=== PATIENT | female | born 1990 | race Caucasian/White ===

== ENCOUNTER 2019-05-20 15:53 | Outpatient (CLI) | payer OTHER, SELFPAY ==
--- NOTE | ~2019-05-20 | US_ITS ---
EXAMINATION: US soft tissue abdomen DATE: 05/20/2019 16:28 INDICATION: Palpable mass in left upper quadrant of the abdomen. TECHNIQUE: Multiple grayscale and Doppler ultrasound images of the abdomen were obtained. COMPARISON: CT abdomen and pelvis 12/11/2015 FINDINGS: There is no abnormal mass or hernia in the patient's area of concern in left upper quadrant . IMPRESSION: 1. No abnormal mass or hernia in the patient's area of concern in left upper quadrant. Reviewed, dictated and finalized at location A. [facility]MENT[facility] CONSULTANT IMPRESSION: 1. No abnormal mass or hernia in the patient's area of concern in left upper qu adrant.
== END 2019-05-20 15:54 | disposition home or self-care (01) ==
LOC: ANHIMG 16:00
PROVIDERS: PCP Nurse Practitioner; Visit Provider Nurse Practitioner
DX: R19.00 Intra-abdominal and pelvic swelling, mass and lump, unspecified site (principal)
CPT/HCPCS: 76705

== ENCOUNTER 2021-07-10 06:41 | Outpatient (CLI) | payer OTHER, SELFPAY ==
--- NOTE | ~2021-07-10 | MR_ITS ---
EXAMINATION: MR knee LT wo con DATE: 07/10/2021 07:46 INDICATION: Chronic left knee pain TECHNIQUE: Magnetic resonance imaging (MRI) of the left knee was performed without intravenous contra st. Sequences included coronal PD-weighted FSE, coronal PD-weighted FS FSE, sagittal T2-weighted FSE , sagittal PD-weighted FS FSE and axial PD weighted fat saturated FSE. COMPARISON: None. FINDINGS: Medial compartment: Medial meniscus is normal. Articular cartilage is normal. Lateral compartment: Lateral meniscus is normal. Articular cartilage is normal. Patellofemoral compartment: Articular cartilage is normal. Ligaments and tendons: Complete tear at the midportion of the anterior cruciate ligament. Posterior cruciate ligament is nor mal. The medial collateral ligament is normal. There is mild thickening of the proximal fibular colla teral ligament with small amount of edema along the superficial margin consistent with likely low-gra de sprain. The extensor mechanism is normal. Mild tendinopathy of the distal semimembranosus with sma ll intrasubstance ganglion cyst within a split tear at the distal tendon. The visualized medial and l ateral hamstring tendons as well as the iliotibial band are otherwise normal. Mild feathery edema rico ng the proximal most myotendinous junction of the lateral head of the gastrocnemius consistent with l ow-grade strain. Fluid: Moderate-sized left knee joint effusion. No loose osteochondral bodies identified. Small Caballero's cyst . Osseous/other: There are bone contusions along the posterior margins of both the medial and lateral tibial plateau. No fracture or pathologic marrow replacing process. IMPRESSION: 1. Complete tear of the medial collateral ligament with bone contusion along the posterior margins of the medial and lateral tibial plateau consistent with an anterior tibial subluxation injury. No evid ent associated meniscal or cartilage injury. 2. Low-grade sprain/mild partial tear of the fibular collateral ligament. 3. Low-grade strain at the proximal lateral head of the gastrocnemius. 4. Moderate-sized left knee joint effusion and small Caballero's cyst. 5. Mild semimembranosus tendinopathy with small intrasubstance ganglion cyst extending along a split tear at the distal insertion of the tendon. Reviewed, dictated and finalized at location B. IMPRESSION: 1. Complete tear of the medial collateral ligament with bone contusion along th e posterior margins of the medial and lateral tibial plateau consistent with an anterior tibial subluxation injury. No evident associated meniscal or cartilag e injury. 2. Low-grade sprain/mild partial tear of the fibular collateral ligament. 3. Low-grade strain at the proximal lateral head of the gastrocnemius. 4. Moderate-sized left knee joint effusion and small Caballero's cyst. 5. Mild semimembranosus tendinopathy with small intrasubstance ganglion cyst ex tending along a split tear at the distal insertion of the tendon.
== END 2021-07-10 06:42 | disposition home or self-care (01) ==
LOC: ANHIMG 06:53
PROVIDERS: PCP Nurse Practitioner; Visit Provider Orthopaedic Surgery
DX: M25.462 Effusion, left knee (principal); S83.242A Other tear of medial meniscus, current injury, left knee, initial encounter; X58.XXXA Exposure to other specified factors, initial encounter; S83.422A Sprain of lateral collateral ligament of left knee, initial encounter
CPT/HCPCS: 73721